=== PATIENT | female | born 1980 | race Caucasian/White ===

== ENCOUNTER 2020-04-22 20:27 | Emergency (ER) | payer SELFPAY ==
[~2020-04-22] VITALS: Ht 160 cm; Wt 90.1 kg
[2020-04-22 21:08] LABS: BASO # 0.1 x10^3/uL (0.0-0.2); BASO % 1 % (0-3); EOS # 0.1 x10^3/uL (0.0-0.7); EOS % 1 % (0-3); HEMATOCRIT 41.1 % (36.0-47.0); HEMOGLOBIN 13.9 g/dL (12.0-15.5); LYMPH # 3.5 x10^3/uL (1.0-4.8); LYMPH % 31 % (24-48); MEAN CORPUSCULAR HEMOGLOBIN 30 pg (25-35); MEAN CORPUSCULAR HGB CONC 34 g/dL (31-37); MEAN CORPUSCULAR VOLUME 89 fL (79-100); MONO # 0.9 x10^3/uL (0.0-1.1); MONO % 8 % (0-9); NEUT # 6.9 x10^3/uL (1.8-7.7); NEUT % 60 % (31-73); PLATELET COUNT 291 x10^3/uL (140-400); RED BLOOD COUNT 4.64 x10^6/uL (3.50-5.40); RED CELL DISTRIBUTION WIDTH 12.6 % (11.5-14.5); WHITE BLOOD COUNT 11.6 x10^3/uL (4.0-11.0)
[2020-04-22 21:11] LABS: BILIRUBIN,URINE NEGATIVE (NEG); CLARITY,URINE CLEAR; COLOR,URINE YELLOW; NITRITE,URINE NEGATIVE (NEG); PH,URINE 5.5 (<5.0-8.0); PROTEIN,URINE NEGATIVE (NEG-TRACE); UROBILINOGEN,URINE 0.2 mg/dL (0.2 mg/dL)
[2020-04-22 21:14] LABS: SQUAMOUS EPITHELIAL CELL,UR MANY /LPF
[2020-04-22 21:16] LABS: BACTERIA,URINE MANY /HPF (0-FEW); BARBITURATES NEG (NEG); BENZODIAZEPINES NEG (NEG); CANNABINOIDS NEG (NEG); COCAINE NEG (NEG); METHADONE NEG (NEG); OPIATES NEG (NEG); PHENCYCLIDINE NEG (NEG); RBC,URINE 0 /HPF (0-2)
[2020-04-22 21:17] LABS: CALCIUM 8.8 mg/dL (8.5-10.1); CREATININE 0.8 mg/dL (0.6-1.0); GFR 78.7; POTASSIUM 3.8 mmol/L (3.5-5.1)
[2020-04-22 21:18] LABS: AMPHETAMINE/METHAMPHETAMINE NEG (NEG)
[2020-04-22 21:23] LABS: ALBUMIN 3.4 g/dL (3.4-5.0); ALBUMIN/GLOBULIN RATIO 0.8 (1.0-1.7); MAGNESIUM 2.1 mg/dL (1.8-2.4); TOTAL BILIRUBIN 0.3 mg/dL (0.2-1.0); TOTAL PROTEIN 7.8 g/dL (6.4-8.2)
--- NOTE | 2020-04-22 21:39 | RAD ---
Exam: CT head INDICATION: Dizziness on and off for one week TECHNIQUE: Sequential axial images through the head were obtained without the administration of IV contrast. Comparisons: None FINDINGS: No focal parenchymal lesion or hemorrhage is identified. There is no midline shift or sulcal effacement. No acute vascular territory infarction is identified. Fagan-white distinction is preserved. The ventricular system is within normal limits without compression hydrocephalus. The basal cisterns are well maintained. Mild extra cranial soft tissue scalp contusion overlying the right frontal region. The visualized portions of the paranasal sinuses and mastoid air cells are well-pneumatized. No acute fractures. IMPRESSION: Mild extra cranial soft tissue scalp contusion overlying the right frontal region without underlying osseous or intracranial abnormality. Exposure: One or more of the following in the visualized dose reduction techniques were utilized for this examination: 1. Automated exposure control 2. Adjustment of the MA and/or KV according to patient size Use of iterative of reconstructive technique Electronically signed by: Chloé Delaney MD (04/22/2020 9:36 PM) [id number]
[2020-04-22] MEDS ORDERED: IV NORMAL SALINE 1000ML BAG 1,000 ML IV ONE (22:00)
[2020-04-22] MEDS ORDERED: MECLIZINE HCL 12.5 MG TABLET. PO ONE (22:00)
--- NOTE | 2020-04-22 22:06 | PHYS DOC ---
Past Medical History Past Medical History: Anemia, Asthma, Hypertension Past Surgical History: Cholecystectomy, Other Additional Past Surgical Histo: PARTIAL HYSTERECTOMY Smoking Status: Former Smoker Alcohol Use: None General Adult EDM: Chief Complaint: DIZZY/LIGHT HEADED HPI: HPI: Patient is a 40 year old female presented to ER today for evaluation of dizziness off and on for a week. Patient said whenever she woke up in the morning at the scene laying down on her right side she would have some dizziness. Patient works as a box truck driver, deliver fruits. Patient denied a cough or any fever, no trouble breathing, no chest pain, no abdominal pain, no nausea vomiting. Patient says he has some altered taste sensation today. Patient says she was sitting on her couch this evening when she stood up she become dizzy. Patient denies any blurry vision, no slow speech, no focal weakness or numbness anywhere. Patient denies any recent sickness. Patient has history of hypertension and asthma. Patient denies any exposure to anybody who tested positive for COVID-19. Patient denies any dizziness at this time. Review of Systems: Review of Systems: Constitutional: Denies fever or chills. [] Eyes: Denies change in visual acuity. [] HENT: Denies nasal congestion or sore throat. [] Respiratory: Denies cough or shortness of breath. [] Cardiovascular: Denies chest pain or edema. [] GI: Denies abdominal pain, nausea, vomiting, bloody stools or diarrhea. [] : Denies dysuria. [] Musculoskeletal: Denies back pain or joint pain. [] Integument: Denies rash. [] Neurologic: Denies headache, focal weakness or sensory changes. Positive for dizziness Endocrine: Denies polyuria or polydipsia. [] Lymphatic: Denies swollen glands. [] Psychiatric: Denies depression or anxiety. [] Heart Score: Risk Factors: Risk Factors: DM, Current or recent (<one month) smoker, HTN, HLP, family history of CAD, obesity. Risk Scores: Score 0 - 3: 2.5% MACE over next 6 weeks - Discharge Home Score 4 - 6: 20.3% MACE over next 6 weeks - Admit for Clinical Observation Score 7 - 10: 72.7% MACE over next 6 weeks - Early Invasive Strategies Current Medications: Current Medications Medications (Trade) Dose Ordered Sig/Gopal Start Time Stop Time Status Last Admin Dose Admin Meclizine HCl (Antivert) 25 mg 1X ONCE 04/22/20 22:00 04/22/20 22:01 DC 04/22/20 21:53 25 MG Sodium Chloride 1,000 ml @ 1,000 mls/hr 1X ONCE 04/22/20 22:00 04/22/20 22:59 04/22/20 21:53 1,000 MLS/HR Allergies: Allergies: Allergies Coded Allergies Type Severity Reaction Last Updated Verified No Known Drug Allergies 04/22/20 No Physical Exam: PE: Constitutional: Well developed, well nourished, no acute distress, non-toxic appearance. [] HENT: Normocephalic, atraumatic, bilateral external ears normal, oropharynx moist, no oral exudates, nose normal. [] Eyes: PERRLA, EOMI, conjunctiva normal, no discharge. [] Neck: Normal range of motion, no tenderness, supple, no stridor. [] Cardiovascular:Heart rate regular rhythm, no murmur [] Lungs & Thorax: Bilateral breath sounds clear to auscultation [] Abdomen: Bowel sounds normal, soft, no tenderness, no masses, no pulsatile masses. [] Skin: Warm, dry, no erythema, no rash. [] Back: No tenderness, no CVA tenderness. [] Extremities: No tenderness, no cyanosis, no clubbing, ROM intact, no edema. [] Neurologic: Alert and oriented X 3, normal motor function, normal sensory function, no focal deficits noted. [] Psychologic: Affect normal, judgement normal, mood normal. [] Current Patient Data: Labs: Laboratory Tests Test 04/22/20 20:35 04/22/20 20:39 04/22/20 20:42 Urine Collection Type Unknown Urine Color Yellow Urine Clarity Clear Urine pH 5.5 (<5.0-8.0) Urine Specific [place] 1.025 (1.000-1.030) Urine Protein Negative mg/dL (NEG-TRACE) Urine Glucose (UA) Negative mg/dL (NEG) Urine Ketones (Stick) Negative mg/dL (NEG) Urine Blood Negative (NEG) Urine Nitrite Negative (NEG) Urine Bilirubin Negative (NEG) Urine Urobilinogen Dipstick 0.2 mg/dL (0.2 mg/dL) Urine Leukocyte Esterase Negative (NEG) Urine RBC 0 /HPF (0-2) Urine WBC 1-4 /HPF (0-4) Urine Squamous Epithelial Cells Many /LPF Urine Bacteria Many /HPF (0-FEW) Urine Mucus Marked /LPF Urine Opiates Screen Neg (NEG) Urine Methadone Screen Neg (NEG) Urine Barbiturates Neg (NEG) Urine Phencyclidine Screen Neg (NEG) Urine Amphetamine/Methamphetamine Neg (NEG) Urine Benzodiazepines Screen Neg (NEG) Urine Cocaine Screen Neg (NEG) Urine Cannabinoids Screen Neg (NEG) Urine Ethyl Alcohol Neg (NEG) White Blood Count 11.6 x10^3/uL (4.0-11.0) H Red Blood Count 4.64 x10^6/uL (3.50-5.40) Hemoglobin 13.9 g/dL (12.0-15.5) Hematocrit 41.1 % (36.0-47.0) Mean Corpuscular Volume 89 fL (79-100) Mean Corpuscular Hemoglobin 30 pg (25-35) Mean Corpuscular Hemoglobin Concent 34 g/dL (31-37) Red Cell Distribution Width 12.6 % (11.5-14.5) Platelet Count 291 x10^3/uL (140-400) Neutrophils (%) (Auto) 60 % (31-73) Lymphocytes (%) (Auto) 31 % (24-48) Monocytes (%) (Auto) 8 % (0-9) Eosinophils (%) (Auto) 1 % (0-3) Basophils (%) (Auto) 1 % (0-3) Neutrophils # (Auto) 6.9 x10^3/uL (1.8-7.7) Lymphocytes # (Auto) 3.5 x10^3/uL (1.0-4.8) Monocytes # (Auto) 0.9 x10^3/uL (0.0-1.1) Eosinophils # (Auto) 0.1 x10^3/uL (0.0-0.7) Basophils # (Auto) 0.1 x10^3/uL (0.0-0.2) Sodium Level 141 mmol/L (136-145) Potassium Level 3.8 mmol/L (3.5-5.1) Chloride Level 104 mmol/L (98-107) Carbon Dioxide Level 31 mmol/L (21-32) Anion Gap 6 (6-14) Blood Urea Nitrogen 13 mg/dL (7-20) Creatinine 0.8 mg/dL (0.6-1.0) Estimated GFR (Cockcroft-Gault) 78.7 BUN/Creatinine Ratio 16 (6-20) Glucose Level 118 mg/dL (70-99) H Calcium Level 8.8 mg/dL (8.5-10.1) Magnesium Level 2.1 mg/dL (1.8-2.4) Total Bilirubin 0.3 mg/dL (0.2-1.0) Aspartate Amino Transferase (AST) 14 U/L (15-37) L Alanine Aminotransferase (ALT) 21 U/L (14-59) Alkaline Phosphatase 95 U/L (46-116) Troponin I Quantitative < 0.017 ng/mL (0.000-0.055) Total Protein 7.8 g/dL (6.4-8.2) Albumin 3.4 g/dL (3.4-5.0) Albumin/Globulin Ratio 0.8 (1.0-1.7) L POC Urine HCG, Qualitative Hcg negative (Negative) Laboratory Tests 04/22/20 20:39 Laboratory Tests 04/22/20 20:39 Vital Signs: Vital Signs Date Time Temp Pulse Resp B/P (MAP) Pulse Ox O2 Delivery O2 Flow Rate FiO2 04/22/20 21:52 80 19 99 04/22/20 20:36 98.5 158/83 (108) Room Air 98.5 EKG: EKG: Interpreted by emergency department physician Rhythm: Sinus rhythm Rate: 80 Ectopy: Normal Conduction: Normal ST Segments: No ST segment T Waves: No T wave inversion Q Waves: No Q waves Clinical Impression: Normal sinus rhythm Radiology/Procedures: Radiology/Procedures: [][facility] [address] [place] [address] IMAGING REPORT Signed PATIENT: KUN LARSON ACCOUNT: [id number] : 1980 LOCATION: ER AGE: 40 SEX: F EXAM STATUS: REG ER ORD. PHYSICIAN: SHALINI COREY DO REASON: dizziness off and on for 1 week PROCEDURE: CT HEAD WO CONTRAST Exam: CT head INDICATION: Dizziness on and off for one week TECHNIQUE: Sequential axial images through the head were obtained without the administration of IV contrast. Comparisons: None FINDINGS: No focal parenchymal lesion or hemorrhage is identified. There is no midline shift or sulcal effacement. No acute vascular territory infarction is identified. Fagan-white distinction is preserved. The ventricular system is within normal limits without compression hydrocephalus. The basal cisterns are well maintained. Mild extra cranial soft tissue scalp contusion overlying the right frontal region. The visualized portions of the paranasal sinuses and mastoid air cells are well-pneumatized. No acute fractures. IMPRESSION: Mild extra cranial soft tissue scalp contusion overlying the right frontal region without underlying osseous or intracranial abnormality. Exposure: One or more of the following in the visualized dose reduction techniques were utilized for this examination: 1. Automated exposure control 2. Adjustment of the MA and/or KV according to patient size Use of iterative of reconstructive technique Electronically signed by: Chloé España MD (04/22/2020 9:36 PM) [id number] DICTATED and SIGNED BY: CHLOÉ ESPAÑA MD DATE: 04/22/202135 Course & Med Decision Making: Course & Med Decision Making Pertinent Labs and Imaging studies reviewed. (See chart for details) Patient is a 40-year-old female who was evaluated in ER due to dizziness epi sode. Patient had no focal neurological deficits in the ER, she had no dizziness at this time. Work-up did not find any acute problem. Patient will be discharged home. Dragon Disclaimer: Hardik Disclaimer: This electronic medical record was generated, in whole or in part, using a voice recognition dictation system. Departure Departure Impression: Primary Impression: Dizziness Disposition: 01 HOME, SELF-CARE Condition: IMPROVED Referrals: NO PCP (PCP) follow up with your doctor as needed Patient Instructions: Dizziness Additional Instructions: Thank you for visiting our Emergency Department. We appreciate you trusting us with your care. If any additional problems come up don't hesitate to return to visit us. Please follow up with your primary care provider so they can plan additional care if needed and know about the problem that you had. If symptoms worsen come back to the Emergency Department. Any concerning symptoms that start such as chest pain, shortness of air, weakness or numbness on one side of the body, running high fevers or any other concerning symptoms return to the ER. Justicifation of Admission Dx: Justifications for Admission: Justification of Admission Dx: N/A SHALINI COREY DO Apr 22, 2020 22:06
[2020-04-22 22:27] VITALS: BP 130/71
--- NOTE | 2020-04-23 06:33 | EKG ---
[facility] [address] [place] [address] Test Date: 2020-04-22 Test Time: 20:45:50 Pat Name: KUN LARSON Department: Room: Gender: F Nurses Supervisor: : 1980 Requested By: SHALINI COREY Order Number: [id number] Reading MD: Measurements Intervals Lolita Rate: 80 P: 23 HI: 142 QRS: 42 QRSD: 94 T: 36 QT: 362 QTc: 421 Interpretive Statements SINUS RHYTHM NORMAL ECG RI6.02 No previous ECG available for comparison
--- NOTE | 2020-04-26 10:02 | NUR ---
IP: Informed pt of negative COVID results. Pt verbalized understanding.
== END 2020-04-22 22:26 | disposition home or self-care (01) ==
LOC: ER 20:27
DX: R42 Dizziness and giddiness (principal); Z20.818 Contact with and (suspected) exposure to other bacterial communicable diseases; J45.909 Unspecified asthma, uncomplicated; I10 Essential (primary) hypertension; Z90.49 Acquired absence of other specified parts of digestive tract; Z90.710 Acquired absence of both cervix and uterus; Z98.890 Other specified postprocedural states
CPT/HCPCS: 36415; 70450; 80053; 80307; 81001; 81025; 83735; 84484; 85025; 87086; 93005; 99285; J7030; U0003; J8597